=== PATIENT | female | born 1960 | race Caucasian/White ===

== ENCOUNTER 2019-05-07 08:34 | Emergency (ER) | payer MEDICAID ==
[~2019-05-07] VITALS: Ht 154.9 cm; Wt 70.0 kg
[2019-05-07] MEDS ORDERED: ONDANSETRON HCL 4MG/2ML INJ IV STA (08:59)
[2019-05-07] MEDS ORDERED: KETOROLAC 30MG/ML VIAL IV STA (08:59)
[2019-05-07] MEDS ORDERED: SODIUM CHLORIDE 0.9% 1,000 ML IV ONE (08:59)
[2019-05-07] MEDS ORDERED: FAMOTIDINE 20MG/2ML VIAL IV STA (08:59)
[2019-05-07 09:25] LABS: BASOPHILS % 0.3 % (0.0-2.0); EOSINOPHILS % 0.1 % (0.0-5.0); HEMATOCRIT. 39.8 % (36.0-48.0); HEMOGLOBIN. 13.8 g/dL (12.0-16.0); LYMPHOCYTES % 10.3 % (20.0-50.0); MEAN CORPUSCULAR HEMOGLOBIN 32.6 pg (28.0-32.0); MEAN CORPUSCULAR VOLUME 93.8 fL (81.0-99.0); MEAN PLATELET VOLUME 7.2 fl (7.4-10.4); MONOCYTES % 2.1 % (2.0-8.0); NEUTROPHILS % 87.2 % (40.0-76.0); PLATELET 196 x1000/uL (130-400); RED BLOOD CELL COUNT 4.25 mill/uL (4.2-5.4); RED CELL DISTRIBUTION WIDTH 13.4 % (11.6-14.6)
[2019-05-07 09:29] LABS: CHLORIDE 103 mEq/L (98-107)
[2019-05-07 09:31] LABS: INR 1.1; PROTHROMBIN TIME 11.1 sec (9.6-11.0)
[2019-05-07 09:53] LABS: CLARITY URINE CLEAR (CLEAR); COLOR URINE YELLOW (YELLOW); KETONES URINE 1+ (NEGATIVE); LEUKOCYTE ESTERASE URINE NEGATIVE (NEGATIVE); NITRITE URINE NEGATIVE (NEGATIVE); OCCULT BLOOD URINE 1+ (NEGATIVE); PH URINE 5.5 (4.5-8.0); PROTEIN URINE NEGATIVE (NEGATIVE); SPECIFIC GRAVITY URINE 1.033 (1.005-1.030); UROBILINOGEN URINE 0.2 E.U./dL (0.2-1.0)
[2019-05-07] MEDS ORDERED: TAMSULOSIN HCL 0.4MG SR CAPSULE PO ONE (12:00)
[2019-05-07 12:57] VITALS: BP 144/66
== END 2019-05-07 12:58 | disposition home or self-care (01) ==
LOC: ER 08:34
DX: N13.2 Hydronephrosis with renal and ureteral calculous obstruction (principal); E11.9 Type 2 diabetes mellitus without complications; E78.00 Pure hypercholesterolemia, unspecified; I10 Essential (primary) hypertension
CPT/HCPCS: 36415; 71045; 74176; 80053; 81003; 83690; 84484; 85025; 85610; 93005; 96374; 96375; 99284; J1885; J2405; J3490; J7030

== ENCOUNTER 2019-05-11 20:33 | Emergency (ER) | payer MEDICAID ==
[~2019-05-11] VITALS: Ht 157.5 cm; Wt 69.0 kg
[2019-05-11 21:44] VITALS: BP 131/42
== END 2019-05-11 23:00 | disposition left against medical advice (07) ==
LOC: ER 21:44
DX: Z53.21 Procedure and treatment not carried out due to patient leaving prior to being seen by health care provider (principal)

== ENCOUNTER 2020-09-30 13:49 | Inpatient (IN) | payer SELFPAY ==
[~2020-09-30] VITALS: Ht 157.5 cm; Wt 47.8 kg
[2020-09-30] MEDS ORDERED: SITA100T11 PO (14:27)
[2020-09-30] MEDS ORDERED: GLIP10TA10 PO (14:27)
[2020-09-30] MEDS ORDERED: BENA20TA10 PO (14:27)
[2020-09-30] MEDS ORDERED: KETOROLAC 30MG/ML VIAL IV STA (14:51)
[2020-09-30] MEDS ORDERED: ONDANSETRON HCL 4MG/2ML INJ IV STA (14:51)
[2020-09-30] MEDS ORDERED: SODIUM CHLORIDE 0.9% 1,000 ML IV ONE (15:00)
[2020-09-30 15:56] LABS: BASOPHILS % 0.2 % (0.0-2.0); HEMATOCRIT. 41.9 % (36.0-48.0); HEMOGLOBIN. 14.1 g/dL (12.0-16.0); LYMPHOCYTES % 23.1 % (20.0-50.0); MEAN CORPUSCULAR HEMOGLOBIN 31.7 pg (28.0-32.0); MEAN CORPUSCULAR VOLUME 93.8 fL (81.0-99.0); MEAN PLATELET VOLUME 7.8 fl (7.4-10.4); MONOCYTES % 4.8 % (2.0-8.0); NEUTROPHILS % 71.9 % (40.0-76.0); PLATELET 187 x1000/uL (130-400); RED BLOOD CELL COUNT 4.46 mill/uL (4.2-5.4)
[2020-09-30 16:03] LABS: CHLORIDE 106 mEq/L (98-107)
[2020-09-30] MEDS ORDERED: SODIUM BICARBONATE 8.4% 1 MEQ/ML 50ML SYR IV ONE (17:30)
[2020-09-30 19:08] LABS: CHLORIDE 103 mEq/L (98-107)
[2020-09-30] MEDS ORDERED: ACETAMINOPHEN 325MG TABLET PO PRN (20:15)
[2020-09-30] MEDS ORDERED: ONDANSETRON HCL 4MG/2ML INJ IV PRN (20:15)
[2020-09-30] MEDS ORDERED: DEXTROSE 50% WATER 50ML SYRINGE IV PRN (20:15)
[2020-09-30] MEDS ORDERED: TRAMADOL 50MG TABLET PO PRN (20:15)
[2020-09-30 21:55] LABS: HEPATITIS B SURFACE ANTIGEN NEGATIVE
[2020-09-30] MEDS: BLOOD SUGAR DIAGNOSTIC STRIP TEST SCH (22:11)
[2020-09-30] MEDS: INSULIN LISPRO 100 UNITS/ML SUBCUT SCH (22:15)
[2020-09-30 22:25] LABS: HEPATITIS A AB IGM NEGATIVE (NEGATIVE)
[2020-09-30 23:24] LABS: CLARITY URINE CLEAR (CLEAR); COLOR URINE DARK YELLOW (YELLOW); KETONES URINE 3+ (NEGATIVE); LEUKOCYTE ESTERASE URINE 1+ (NEGATIVE); NITRITE URINE NEGATIVE (NEGATIVE); OCCULT BLOOD URINE TRACE (NEGATIVE); PH URINE 5.5 (4.5-8.0); PROTEIN URINE 1+ (NEGATIVE); SPECIFIC GRAVITY URINE 1.032 (1.005-1.030)
[2020-10-01] VITALS: BP 131/51
[2020-10-01] MEDS ORDERED: *PATIENT'S OWN MEDICATION STORAGE XX SCH (02:45)
[2020-10-01 08:00] VITALS: BP 128/68
[2020-10-01] MEDS: BLOOD SUGAR DIAGNOSTIC STRIP TEST SCH ×4 (08:13→21:09)
[2020-10-01] MEDS: INSULIN LISPRO 100 UNITS/ML SUBCUT SCH ×4 (09:49→22:25)
[2020-10-01 12:00] VITALS: BP 126/70
[2020-10-01 15:01] VITALS: BP_SYST 119; BP_SYST 126; BP_DIAS 70; BP_DIAS 76
[2020-10-01 16:00] VITALS: BP 162/66
[2020-10-01 20:00] VITALS: BP 135/53
[2020-10-02] VITALS: BP 130/60
[2020-10-02 04:00] VITALS: BP 134/78
[2020-10-02] MEDS: BLOOD SUGAR DIAGNOSTIC STRIP TEST SCH ×2 (07:54→11:48)
[2020-10-02 08:00] VITALS: BP 151/63
[2020-10-02] MEDS: INSULIN LISPRO 100 UNITS/ML SUBCUT SCH ×2 (08:59→13:29)
[2020-10-05 15:08] LABS: ANA IFA Positive (.)
== END 2020-10-02 16:45 | disposition home or self-care (01) ==
LOC: ER 13:49 → 6EST 19:05 → ENRESERV 22:50
PROVIDERS: ADMIT Internal Medicine; ATTEND Internal Medicine
DX: K80.70 Calculus of gallbladder and bile duct without cholecystitis without obstruction (principal); K74.60 Unspecified cirrhosis of liver; K57.90 Diverticulosis of intestine, part unspecified, without perforation or abscess without bleeding; N20.0 Calculus of kidney; K75.9 Inflammatory liver disease, unspecified; K75.4 Autoimmune hepatitis; E11.9 Type 2 diabetes mellitus without complications; I10 Essential (primary) hypertension; E87.1 Hypo-osmolality and hyponatremia; K76.0 Fatty (change of) liver, not elsewhere classified
CPT/HCPCS: 36415; 71045; 74176; 76705; 80048; 80053; 81003; 82962; 83036; 85025; 86256; 86705; 86709; 86803; 87340; 93005; 99285; J1815; J1885; J2405; J3490

== ENCOUNTER 2020-10-11 23:32 | Emergency (ER) | payer SELFPAY ==
[~2020-10-11] VITALS: Ht 152.4 cm; Wt 66.0 kg
[~2020-10-11 23:32] MED LIST: BENA20TA10 PO; GLIP10TA10 PO; SITA100T11 PO
[2020-10-11 23:33] VITALS: BP 174/74
[2020-10-12] MEDS ORDERED: VISCOUS LIDOCAINE 2% 15 ML UDC MM STA (01:31)
[2020-10-12] MEDS ORDERED: MAGNESIUM/ALUMINUM HYDROXIDE/SIMETHICONE 30ML UDC PO ONE (01:45)
[2020-10-12] MEDS ORDERED: MORPHINE SULFATE 4 MG/ML CPJ (NOT FOR IM USE) IV ONE (01:45)
[2020-10-12 01:53] LABS: CLARITY URINE CLEAR (CLEAR); COLOR URINE DARK YELLOW (YELLOW); KETONES URINE TRACE (NEGATIVE); LEUKOCYTE ESTERASE URINE 2+ (NEGATIVE); NITRITE URINE NEGATIVE (NEGATIVE); OCCULT BLOOD URINE NEGATIVE (NEGATIVE); PROTEIN URINE 1+ (NEGATIVE); SPECIFIC GRAVITY URINE 1.026 (1.005-1.030)
[2020-10-12] MEDS ORDERED: ONDANSETRON 4MG ODT PO ONE (02:00)
== END 2020-10-12 02:50 | disposition home or self-care (01) ==
LOC: ER 23:49
DX: R10.11 Right upper quadrant pain (principal); R94.5 Abnormal results of liver function studies; I10 Essential (primary) hypertension; E11.9 Type 2 diabetes mellitus without complications
CPT/HCPCS: 81003; 93005; 96374; 99284; J2270; Q0162